=== PATIENT | male | born 1970 ===

== ENCOUNTER 2019-03-18 11:34 | Emergency (ER) | payer OTHER ==
[~2019-03-18] VITALS: Ht 170.2 cm; Wt 77.1 kg
[2019-03-18] MEDS ORDERED: KETO10 PO (12:25)
[2019-03-18] MEDS ORDERED: Robaxin500 MG PO (12:25)
[2019-03-18] MEDS ORDERED: Capsaicin60 GM TOP (12:25)
== END 2019-03-18 12:34 | disposition home or self-care (01) ==
LOC: ER 11:34
DX: S39.012A Strain of muscle, fascia and tendon of lower back, initial encounter (principal); X58.XXXA Exposure to other specified factors, initial encounter
CPT/HCPCS: 96372; 99283-25; J1885